=== PATIENT | male | born 1970 | race Two or more races ===

== ENCOUNTER 2024-06-06 05:32 | Emergency (ER) | payer BC ==
[~2024-06-06] VITALS: Ht 182.9 cm; Wt 100.5 kg
[2024-06-06] MEDS: KETOROLAC TROMETH 30 MG/ML 1ML VIAL IV ONE (08:00)
[2024-06-06] MEDS: SODIUM CHLORIDE 0.9% 500 ML IVB ONE (08:00)
[2024-06-06] MEDS: METOCLOPRAMIDE HCL 5MG/ml INJ 2ml VIAL IV ONE (08:00)
[2024-06-06 08:23] LABS: Basophils # (auto) 0.1 10 ^3/uL (0-0.2); Basophils % (auto) 0.6 % (0.0-2.0); Eosinophils # (auto) 0 10 ^3/uL (0-0.8); Eosinophils % (auto) 0.2 % (0.0-7.0); Hemoglobin 14.7 g/dL (13.5-17.5); Lymphocytes # (auto) 1.7 10 ^3/uL (0.4-5.4); Lymphocytes % (auto) 15.1 % (10.0-50.0); Mean Corpuscular Hemoglobin 31.9 pg (28.0-32.0); Mean Corpuscular Hgb Conc. 34.3 g/dL (32.0-36.0); Mean Corpuscular Volume 93.2 fL (80.0-100.0); Monocytes % (auto) 8.5 % (0.0-12.0); Neutrophils # (auto) 8.4 10 ^3/uL (1.6-8.6); Neutrophils % (auto) 75.6 % (37.0-80.0); Nucleated Red Blood Cells % 0.1 %; Platelet Count (auto) 234 10^3/uL (140-450); Red Blood Cells 4.62 10^6/uL (4.5-5.90); Red Cell Distribution Width 13.9 % (11.8-14.3); White Blood Cell 11.2 10^3/uL (4.4-10.8)
[2024-06-06 08:44] LABS: Alanine Aminotransferase 21 U/L (7-40); Albumin 4.5 g/dL (3.2-4.8); Alkaline Phosphatase 63 U/L (46-116); Anion Gap 4 (5-15); Aspartate Aminotransferase 15 U/L (13-40); BUN/Creatinine Ratio 12.9 (10.0-20.0); Bilirubin, Total 0.8 mg/dL (0.2-1.0); Blood Urea Nitrogen 11 mg/dL (9-23); Calcium 9.7 mg/dL (8.7-10.4); Carbon Dioxide 27 mmol/L (20-30); Chloride 106 mmol/L (98-107); Glucose 108 mg/dL (74-106); Magnesium 1.9 mg/dL (1.6-2.6); Potassium 3.9 mmol/L (3.5-5.1); Sodium 137 mmol/L (136-145); Total Protein 7.4 g/dL (5.7-8.2)
[2024-06-06 09:00] LABS: Urine Bacteria None Seen /hpf (None Seen)
[2024-06-06 09:08] LABS: Lipase 31 U/L (12-53)
[2024-06-06 09:21] LABS: Urine Blood 2+ /uL (Negative); Urine Clarity Clear (Clear); Urine Color Light-Yellow (Yellow); Urine Protein, UAD Negative (Negative); Urine Specific Gravity 1.012 (1.001-1.035); Urine Urobilinogen Normal (Negative); Urine WBC 2 /hpf (0 - 3); Urine pH 5.5 (5.0-9.0)
[2024-06-06] MEDS ORDERED: TAMS-35 PO (09:37)
[2024-06-06] MEDS ORDERED: DICL50TA2 PO (09:37)
[2024-06-06] MEDS ORDERED: HYDR-4902 PO (09:37)
[2024-06-06] MEDS: TAMSULOSIN HYDROCHLORIDE 0.4 MG CAP PO ONE (09:44)
[2024-06-06 09:46] VITALS: BP 126/78; PULSE 68; RESP 18; TEMP 97.8; O2SAT 97
== END 2024-06-06 09:59 | disposition home or self-care (01) ==
LOC: ER 05:32
DX: M47.816 Spondylosis without myelopathy or radiculopathy, lumbar region (principal); N20.1 Calculus of ureter; Z87.442 Personal history of urinary calculi; Z98.890 Other specified postprocedural states
CPT/HCPCS: 36415; 72131; 80053; 81001; 83690; 83735; 85025; 96361; 96374; 96375; 99285; J1885; J2765; J7040